=== PATIENT | female | born 1975 | race African-American/Black ===

== ENCOUNTER 2023-10-27 22:12 | Emergency (ER) | payer SELFPAY ==
[~2023-10-27] VITALS: Ht 162.6 cm; Wt 66.0 kg
[2023-10-27 22:25] VITALS: TEMP 98.7; O2SAT 100
[2023-10-27] MEDS ORDERED: AMOX1TAB16 PO (23:48)
[2023-10-27] MEDS ORDERED: IBUP-2030 PO (23:48)
[2023-10-28] VITALS: BP 143/78; PULSE 92; RESP 18
[2023-10-28] MEDS: KETOROLAC 60MG/2ML VIAL IM ONE
== END 2023-10-28 00:41 | disposition home or self-care (01) ==
LOC: ER 22:12
DX: K08.89 Other specified disorders of teeth and supporting structures (principal); K02.9 Dental caries, unspecified
CPT/HCPCS: 99283; 96372; J1885